=== PATIENT | male | born 1980 | race Caucasian/White ===

== ENCOUNTER 2017-09-06 09:41 | Outpatient (CLI) | payer MEDICARE, OTHER ==
[2015-09-24 18:42] VITALS: BP 117/60
== END 2017-09-06 09:42 ==
LOC: POD 09:41
PROVIDERS: ATTEND Podiatrist Public Medicine
DX: L60.0 Ingrowing nail (principal); Q66.81 Congenital vertical talus deformity, right foot; Q66.82 Congenital vertical talus deformity, left foot; B35.1 Tinea unguium
CPT/HCPCS: 11721; G0463